=== PATIENT | male | born 1995 | race Caucasian/White ===

== ENCOUNTER 2018-08-16 16:45 | Emergency (ER) | payer BC ==
--- NOTE | 2018-08-16 17:42 | EDM.PDOCBH ---
<Emmett Puga - Last Filed: 08/17/18 08:55> ED HPI GENERAL MEDICAL PROBLEM - General Chief Complaint: Behavioral/Psych Stated Complaint: SUICIDAL IDEATIONS SENT BY [facility] AT [facility] Time Seen by Provider: 08/16/18 17:20 - Related Data Allergies Allergy/AdvReac Type Severity Reaction Status Date / Time No Known Allergies Allergy Verified 08/16/18 17:07 Home Meds: Home Meds DULoxetine [Cymbalta] 30 mg PO DAILY 08/16/18 [History] COURSE, BEHAVIORAL HEALTH COMP - Course Vital Signs: Last Vital Signs Temp 98.1 F 08/16/18 17:07 Pulse 82 08/16/18 17:07 Resp 20 08/16/18 17:07 BP 130/65 08/16/18 17:07 Pulse Ox 97 08/16/18 17:07 Orders, Labs, Meds: Laboratory Tests 08/16/18 08/16/18 08/16/18 Range/Units 17:47 17:47 17:47 WBC 6.50 (4.23-9.07) K/mm3 RBC 4.60 L (4.63-6.08) M/mm3 Hgb 14.4 (13.7-17.5) gm/L Hct 42.3 (40.1-51.0) % MCV 92.0 (79.0-92.2) fl MCH 31.3 (25.7-32.2) pg MCHC 34.0 (32.2-35.5) g/dl RDW Std Deviation 43.9 (35.1-43.9) fL Plt Count 171 (163-337) K/mm3 MPV 11.2 (9.4-12.3) fl Neutrophils % (Manual) 65 H (40-60) % Band Neutrophils % 1 (0-10) % Lymphocytes % (Manual) 26 (20-40) % Atypical Lymphs % 0 % Monocytes % (Manual) 6 (2-10) % Eosinophils % (Manual) 2 (0.8-7.0) % Basophils % (Manual) 0 L (0.2-1.2) Platelet Estimate Adequate RBC Morph Comment Normal Sodium 141 (136-145) mEq/L Potassium 3.5 (3.5-5.1) mEq/L Chloride 105 (98-107) mEq/L Carbon Dioxide 23 (21-32) mEq/L Anion Gap 16.5 H (5-15) BUN 12 (7-18) mg/dL Creatinine 1.1 (0.7-1.3) mg/dL Est Cr Clr Drug Dosing 119.58 mL/min Estimated GFR (MDRD) > 60 (>60) mL/min BUN/Creatinine Ratio 10.9 L (14-18) Glucose 86 (74-106) mg/dL Calcium 9.3 (8.5-10.1) mg/dL Total Bilirubin 1.2 H (0.2-1.0) mg/dL AST 10 L (15-37) U/L ALT 17 (16-63) U/L Alkaline Phosphatase 51 (46-116) U/L Total Protein 7.1 (6.4-8.2) g/dl Albumin 4.0 (3.4-5.0) g/dl Globulin 3.1 gm/dL Albumin/Globulin Ratio 1.3 (1-2) TSH 3rd Generation 2.218 (0.358-3.74) uIU/mL Urine Color (Yellow) Urine Appearance (Clear) Urine pH (5.0-8.0) Ur Specific [place] (1.005-1.030) Urine Protein (Negative) Urine Glucose (UA) (Negative) Urine Ketones (Negative) Urine Occult Blood (Negative) Urine Nitrite (Negative) Urine Bilirubin (Negative) Urine Urobilinogen (0.2-1.0) Ur Leukocyte Esterase (Negative) Urine RBC (0-5) /hpf Urine WBC (0-5) /hpf Ur Squamous Epith Cells (0-5) /hpf Amorphous Sediment (NOT SEEN) /hpf Urine Bacteria (FEW) /hpf Urine Mucus (FEW) /hpf Salicylates < 0.2 L (2.8-20) mg/dL Urine Opiates Screen (CRPVCA=833) Ur Buprenorphine Scrn (CUTOFF=10) Ur Oxycodone Screen (ROX5OQ=949) Urine Methadone Screen (SRL6XJ=825) Ur Propoxyphene Screen (UEYPHX=104) Acetaminophen 0 L (10-30) ug/mL Ur Barbiturates Screen (XJDFPA=642) Ur Tricyclics Screen (PLNHCO=617) Ur Phencyclidine Scrn (CUTOFF=25) Ur Amphetamine Screen (TDHBYV=171) U Methamphetamines Scrn (ZZMNAU=905) U Benzodiazepines Scrn (YGLKMY=452) U Cocaine Metab Screen (ARCVPK=016) U Marijuana (THC) Screen (CUTOFF=50) Ethyl Alcohol 0.00 (0.00) gm% 08/16/18 08/16/18 Range/Units 18:50 18:50 WBC (4.23-9.07) K/mm3 RBC (4.63-6.08) M/mm3 Hgb (13.7-17.5) gm/L Hct (40.1-51.0) % MCV (79.0-92.2) fl MCH (25.7-32.2) pg MCHC (32.2-35.5) g/dl RDW Std Deviation (35.1-43.9) fL Plt Count (163-337) K/mm3 MPV (9.4-12.3) fl Neutrophils % (Manual) (40-60) % Band Neutrophils % (0-10) % Lymphocytes % (Manual) (20-40) % Atypical Lymphs % % Monocytes % (Manual) (2-10) % Eosinophils % (Manual) (0.8-7.0) % Basophils % (Manual) (0.2-1.2) Platelet Estimate RBC Morph Comment Sodium (136-145) mEq/L Potassium (3.5-5.1) mEq/L Chloride (98-107) mEq/L Carbon Dioxide (21-32) mEq/L Anion Gap (5-15) BUN (7-18) mg/dL Creatinine (0.7-1.3) mg/dL Est Cr Clr Drug Dosing mL/min Estimated GFR (MDRD) (>60) mL/min BUN/Creatinine Ratio (14-18) Glucose (74-106) mg/dL Calcium (8.5-10.1) mg/dL Total Bilirubin (0.2-1.0) mg/dL AST (15-37) U/L ALT (16-63) U/L Alkaline Phosphatase (46-116) U/L Total Protein (6.4-8.2) g/dl Albumin (3.4-5.0) g/dl Globulin gm/dL Albumin/Globulin Ratio (1-2) TSH 3rd Generation (0.358-3.74) uIU/mL Urine Color Yellow (Yellow) Urine Appearance Clear (Clear) Urine pH 7.0 (5.0-8.0) Ur Specific [place] 1.025 (1.005-1.030) Urine Protein 1+ H (Negative) Urine Glucose (UA) Negative (Negative) Urine Ketones 2+ H (Negative) Urine Occult Blood Negative (Negative) Urine Nitrite Negative (Negative) Urine Bilirubin 1+ H (Negative) Urine Urobilinogen 1.0 (0.2-1.0) Ur Leukocyte Esterase Negative (Negative) Urine RBC Not seen (0-5) /hpf Urine WBC 5-10 H (0-5) /hpf Ur Squamous Epith Cells 0-5 (0-5) /hpf Amorphous Sediment Few H (NOT SEEN) /hpf Urine Bacteria Rare (FEW) /hpf Urine Mucus Many H (FEW) /hpf Salicylates (2.8-20) mg/dL Urine Opiates Screen Negative (XYACLJ=386) Ur Buprenorphine Scrn Negative (CUTOFF=10) Ur Oxycodone Screen Negative (ZQE3JE=620) Urine Methadone Screen Negative (JHB0MT=004) Ur Propoxyphene Screen Negative (SFCACI=349) Acetaminophen (10-30) ug/mL Ur Barbiturates Screen Negative (XSQHTL=676) Ur Tricyclics Screen Negative (HPCQHV=017) Ur Phencyclidine Scrn Negative (CUTOFF=25) Ur Amphetamine Screen Negative (RVHTOK=034) U Methamphetamines Scrn Negative (TXAYEG=044) U Benzodiazepines Scrn Negative (LHBDTH=037) U Cocaine Metab Screen Negative (OYECUL=704) U Marijuana (THC) Screen Presumptive positive H (CUTOFF=50) Ethyl Alcohol (0.00) gm% Departure - Departure Time of Disposition: 08:15 Disposition: DC/Tfer to Psych Hosp/Unit 65 Clinical Impression: Suicidal overdose Qualifiers: Encounter type: initial encounter Qualified Code(s): T50.902A - Poisoning by unspecified drugs, medicaments and biological substances, intentional self-harm , initial encounter - Discharge Information Referrals: Christina Rossi NP [Primary Care Provider] - Forms: ED Department Discharge <Francisco Mendoza - Last Filed: 08/21/18 09:47> ED HPI GENERAL MEDICAL PROBLEM - General Source of Information: Reports: Patient History Limitations: Reports: No Limitations - History of Present Illness INITIAL COMMENTS - FREE TEXT/NARRATIVE: Patient is a 23-year-old male who presents to the ED after taking 120 mg's of Cymbalta this morning at approximately 11:00 in attempt to kill himself. Patient 's had a suicidal ideations for the past few days. He was recently started on Cymbalta 11 days ago and was supposed to be taking 30 mg daily for 14 days and then increase to 60 mg thereafter. States his exfianc has cheated on him. Thus patients been more depressed. States he does smoke marijuana approximately 2 a day. Smokes half pack of cigarettes per day as well. Denies any additional past medical history and current medications. Denies any surgical history. No alcohol use as of recent. Past Medical History Psychiatric History: Reports: Depression Social & Family History - Tobacco Use Smoking Status *Q: Current Every Day Smoker Years of Tobacco use: 4 Packs/Tins Daily: 0.5 - Caffeine Use Caffeine Use: Reports: Soda - Recreational Drug Use Recreational Drug Use: Yes Recreational Drug Type: Reports: Marijuana/Hashish Other Recreational Drug Type: last time was 08/15/2018 1500 ED ROS GENERAL - Review of Systems Review Of Systems: See Below ED EXAM, BEHAVIORAL HEALTH - Physical Exam Exam: See Below Exam Limited By: Other (sleepy) General Appearance: Alert, WD/WN, Lethargic Eye Exam: Bilateral Eye: EOMI, Normal Inspection, PERRL, Vision Changes (none noted) Ears: Normal External Exam, Hearing Grossly Normal Nose: Normal Inspection Throat/Mouth: Normal Voice, No Airway Compromise, Other (mildly dry mouth) Head: Atraumatic, Normocephalic Neck: Normal Inspection, Supple, Non-Tender, Full Range of Motion. No: Lymphadenopathy (L), Lymphadenopathy (R) Respiratory/Chest: No Respiratory Distress, Lungs Clear, Normal Breath Sounds, No Accessory Muscle Use, Chest Non-Tender Cardiovascular: Normal Peripheral Pulses, Regular Rate, Rhythm, No Murmur GI/Abdominal: Normal Bowel Sounds, Soft, Non-Tender, No Organomegaly, No Distention Back Exam: Normal Inspection Extremities: Normal Inspection Neurological: Alert, CN II-XII Intact, Normal Cognition, Oriented x 3 Psychiatric: Alert, Normal Cognition, Oriented, Depressed Mood, Flat Affect, Suicidal Plan, Suicidal Thoughts. No: Incoherent, Restless, Tearful, Agitated, Disoriented, Inattentive, Non-Communicative, Poor Eye Contact, Uncooperative, Homicidal Thoughts, Restorationist Delusions, Tangential Thoughts, Auditory Hallucinations, Visual Hallucinations, Grandiose Thoughts, Pressured Speech, Paranoid Thoughts, Threatening Behavior Skin Exam: Warm, Dry, Intact, Normal color, No rash COURSE, BEHAVIORAL HEALTH COMP - Course Re-Assessment/Re-Exam: On examination patient is alert and oriented 3. He is sleepy with taking 120 mg total Cymbalta today at approximately noon. He has dry mouth but otherwise has no additional complaints. He does admit to trying kill himself today. Initial labs and studies include: CBC, chem 14, TSH, serum EtOH, urine drug screen, salicylate level, acetaminophen level, and UA. 24-hour Hold will be placed on the patient. EKG has been ordered as well. 1748 contacted poison control states peak onset of the medications between 6 and 10 hours. Recommended if it at 9:00 this evening if patient's symptoms have not worsened and are improving he can be medically cleared. Side effects of this medication will cause drowsiness and ataxia. Labs reviewed: CBC essentially normal. Chemistry panel is essentially normal as well. TSH normal. UA 1+ protein, ketones 2+, bilirubin 1+, urine wbc's 5-10, amorphous sediment. Count urine mucous many. Appears contaminated. Patient has no voiding symptoms. Acetaminophen and salicylate levels are within normal limits. Serum EtOH 0.00. Urine drug tox is pending. 1910 spoke with [facility] psych provider Dr. Jimenez. He has accepted the patient as long as the patient can arrive by midnight. He will be unable to hold the bed overnight. Thus if transportation can not be arranged for this evening we will have to call back in the a.m. for placement. 24-hour hold paperwork has been faxed to [facility]. Urine drug tox came back positive for marijuana. 2019 [facility] [employer] has stopped by to pickup 24 hr hold paper work. They will call back once transportation has been arranged. It is the end of my shift and Dr. Nolan will assume care. We still have not heard any new information on transportation status. Departure - Departure Time of Disposition: 17:20 Condition: Good
[2018-08-16 18:22] LABS: ACETAMINOPHEN 0 ug/mL (10-30)
== END 2018-08-17 07:30 ==
LOC: JD.ED 16:45
DX: T43.212A Poisoning by selective serotonin and norepinephrine reuptake inhibitors, intentional self-harm, initial encounter (principal); F32.9 Major depressive disorder, single episode, unspecified; F17.210 Nicotine dependence, cigarettes, uncomplicated; Z79.899 Other long term (current) drug therapy
CPT/HCPCS: 36415; 80053; 80306; 81001; 84443; 85007; 85027; 93005; 99285; G0480; 99283

== ENCOUNTER 2019-11-04 14:42 | Emergency (ER) | payer SELFPAY ==
--- NOTE | 2019-11-04 15:03 | EDM.PDOC ---
ED HPI GENERAL MEDICAL PROBLEM - General Chief Complaint: General Stated Complaint: HEAD INJURY Time Seen by Provider: 11/04/19 15:03 - History of Present Illness INITIAL COMMENTS - FREE TEXT/NARRATIVE: 24-year-old male presents the emergency room with a headache and possible head injury. Yesterday evening at work the patient bumped his head into a hanging metal object a couple of times. He had his left pentecostalism on it. 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 The patient should be wearing glasses but these broke and he does not have glasses. He is always straining to see what he is looking at. The patient also bumped his head into something he does not remember what or where on his head he bumped into. He denies any loss of consciousness. The patient has a history of having multiple concussions when he played football in school. His last concussion was in my not and his administrative personal assistant told him not to play football anymore because another head injury could be severe. It has chronic vision problems since he broke his glasses. Patient denies any recent illnesses no fevers or chills. Right Headache Pain Score (Numeric/FACES): 10 - Related Data Allergies Allergy/AdvReac Type Severity Reaction Status Date / Time No Known Allergies Allergy Verified 11/04/19 15:06 Home Meds: Home Meds . [No Known Home Meds] 11/04/19 [History] Past Medical History Psychiatric History: Reports: Depression Social & Family History - Caffeine Use Caffeine Use: Reports: Soda ED ROS GENERAL - Review of Systems Review Of Systems: See Below Constitutional: Reports: No Symptoms HEENT: Reports: No Symptoms Respiratory: Reports: No Symptoms Cardiovascular: Reports: No Symptoms Endocrine: Reports: No Symptoms GI/Abdominal: Reports: No Symptoms : Reports: No Symptoms Musculoskeletal: Reports: No Symptoms. Denies: Neck Pain Skin: Reports: No Symptoms Neurological: Reports: Headache, Gait Disturbance Psychiatric: Reports: No Symptoms ED EXAM, GENERAL - Physical Exam Exam: See Below Exam Limited By: No Limitations General Appearance: Alert, No Apparent Distress Eye Exam: Bilateral Eye: EOMI, Normal Inspection, PERRL Ears: Normal External Exam, Normal Canal, Hearing Grossly Normal Nose: Normal Inspection, Normal Mucosa, No Blood Throat/Mouth: Normal Inspection, Normal Lips, Normal Teeth, Normal Gums, Normal Oropharynx, Normal Voice, No Airway Compromise Head: Atraumatic, Normocephalic, Other (No bruising or ecchymosis noted in the area where he knows he bumped his head) Neck: Normal Inspection, Supple, Non-Tender, Full Range of Motion. No: Lymphadenopathy (L), Lymphadenopathy (R) Respiratory/Chest: No Respiratory Distress, Lungs Clear, Normal Breath Sounds Cardiovascular: Normal Peripheral Pulses, Regular Rate, Rhythm, No Edema Neurological: Alert, Oriented, Normal Cognition, Other (Annual nerves II through XII grossly intact all muscle groups the upper and lower extremities are equal and appropriate bilaterally. Cerebellar testing is entirely within normal limits. Deep tendon reflexes are equal and appropriate at the patella and brachial radialis bilaterally.) Course - Vital Signs Last Recorded V/S: Last Vital Signs Temp 36.3 C 11/04/19 15:00 Pulse 74 11/04/19 15:00 Resp 16 11/04/19 15:00 BP 125/81 11/04/19 15:00 Pulse Ox 100 11/04/19 15:00 - Orders/Labs/Meds Meds: Medications Discontinued Medications Generic Name Dose Route Start Last Admin Trade Name Sharifq PRN Reason Stop Dose Admin Diphenhydramine HCl 50 mg 11/04/19 15:34 11/04/19 15:56 Benadryl IVPUSH 11/04/19 15:35 50 mg ONETIME ONE Administration Lactated Ringer's 1,000 mls @ 999 mls/hr 11/04/19 15:34 11/04/19 16:02 Ringers, Lactated IV 11/04/19 16:34 999 mls/hr .BOLUS ONE Administration Ondansetron HCl 4 mg 11/04/19 15:34 11/04/19 15:59 Zofran IVPUSH 11/04/19 15:35 4 mg ONETIME ONE Administration - Re-Assessments/Exams Free Text/Narrative Re-Assessment/Exam: 11/04/19 15:43 Patient and his significant other are concerned about finances because he does not have any health insurance. At this point I do not think a CT is can be very beneficial if he had a surgically significant ICH it would have declared itself by now. The mechanism of injury does not sound significant enough to cause this. However the patient has had a repeat repetitive head injuries a CT is not can help me with this. His neurologic exam is entirely within normal limits. We will give the patient a liter of fluids some Zofran and Benadryl and see how he does. 11/04/19 18:06 Patient doing better after IV fluids Zofran and Benadryl. He is sleepy and feels better with further discussion the metal object he was banging his head into was a potato scoop. The patient significant other did talk to the patient's mom and he did have an episode where he had 3 concussions in 1 month. At this point I will discharge the patient home I strongly recommend he follow- up with the hospital clinic this next week for a recheck. Departure - Departure Time of Disposition: 18:07 Disposition: Home, Self-Care 01 Clinical Impression: Headache, Head injury - Discharge Information Referrals: PCP,None [Primary Care Provider] - Forms: ED Department Discharge, ED Return to Work/School Form Additional Instructions: Return to the emergency room with any questions problems or worsening symptoms. Go home and get some sleep. Eat lightly today. Get your glasses fixed or get a new pair of glasses this might help with your headaches. Follow-up at the hospital clinic this next week for recheck make sure everything is getting better. Hospital clinic phone number is [phone] Sepsis Event Note (ED) - Focused Exam Vital Signs: Vital Signs Temp Pulse Resp BP Pulse Ox 11/04/19 15:00 36.3 C 74 16 125/81 100
[2019-11-04] MEDS ORDERED: Lactated Ringers 1,000 ML IV ONE (15:34)
[2019-11-04] MEDS ORDERED: diphenhydrAMINE 50 MG/ML SDV IVPUSH ONE (15:34)
[2019-11-04] MEDS ORDERED: Ondansetron 4 MG/2 ML SDV IVPUSH ONE (15:34)
== END 2019-11-04 18:18 | disposition home or self-care (01) ==
LOC: JD.ED 14:42
DX: S09.90XA Unspecified injury of head, initial encounter (principal); W22.8XXA Striking against or struck by other objects, initial encounter
CPT/HCPCS: 96374; 96375; 99283; J1200; J2405; J7120

== ENCOUNTER 2021-10-08 14:32 | Emergency (ER) | payer SELFPAY ==
[2021-10-08 16:48] LABS: CORONAVIRUS COVID-19 NAA NEGATIVE (NEGATIVE)
== END 2021-10-08 17:42 | disposition home or self-care (01) ==
LOC: JD.ED 14:32
DX: B34.9 Viral infection, unspecified (principal); F17.210 Nicotine dependence, cigarettes, uncomplicated; Z20.822 Contact with and (suspected) exposure to COVID-19
CPT/HCPCS: 0240U; 99284

== ENCOUNTER 2022-11-16 18:20 | Emergency (ER) | payer SELFPAY | END 2022-11-16 20:12 | disposition home or self-care (01) | LOC: JD.ED 18:20 | DX: S00.03XA Contusion of scalp, initial encounter (principal); S09.90XA Unspecified injury of head, initial encounter; Z88.5 Allergy status to narcotic agent; Z86.16 Personal history of COVID-19; W22.09XA Striking against other stationary object, initial encounter; Y92.009 Unspecified place in unspecified non-institutional (private) residence as the place of occurrence of the external cause | CPT/HCPCS: 70450; 70450-26; 99282; 99283 ==

== ENCOUNTER 2023-07-10 11:55 | Emergency (ER) | payer SELFPAY ==
[2023-07-10] MEDS: Ibuprofen 800 MG Tab PO ONE (12:54)
== END 2023-07-10 13:00 | disposition home or self-care (01) ==
LOC: JD.ED 11:55
DX: K02.9 Dental caries, unspecified (principal); F17.210 Nicotine dependence, cigarettes, uncomplicated; Z88.5 Allergy status to narcotic agent; Z86.16 Personal history of COVID-19; Z79.899 Other long term (current) drug therapy
CPT/HCPCS: 99282; A9270; 99283